=== PATIENT | male | born 1955 | race Caucasian/White ===

== ENCOUNTER → 2018-09-06 | Outpatient (CLI) | payer OTHER | END | disposition home or self-care (01) | LOC: RAH 15:02 | PROVIDERS: ATTEND Internal Medicine Cardiovascular Disease | DX: Z13.6 Encounter for screening for cardiovascular disorders (principal) | CPT/HCPCS: 75571 ==

== ENCOUNTER → 2018-09-13 | Outpatient (CLI) | payer OTHER | END | disposition home or self-care (01) | LOC: SHCH 14:47 | PROVIDERS: ATTEND Internal Medicine Cardiovascular Disease | DX: I10 Essential (primary) hypertension (principal) | CPT/HCPCS: 93306 ==

== ENCOUNTER → 2019-12-27 | Outpatient (CLI) | payer OTHER | END | disposition home or self-care (01) | LOC: SHCH 10:00 | PROVIDERS: ATTEND Internal Medicine Cardiovascular Disease | DX: I65.23 Occlusion and stenosis of bilateral carotid arteries (principal) | CPT/HCPCS: 93880 ==

== ENCOUNTER 2021-06-29 09:04 | Day surgery (SDC) | payer OTHER ==
[~2021-06-29] VITALS: Ht 188 cm; Wt 101.2 kg
[~2021-06-29 09:04] MED LIST: 0.9%NACL 1000ML 1,000 ML IV ONE; ASCO100031 PO; ASPI-1197 PO; DOCU100T PO; FISH1CAP27 PO; HYDR25TA PO; LORA10TA7 PO; LOSA25TA41 PO; MULT-1203 PO; WHEA98PO PO
[2021-06-29 09:50] VITALS: BP 157/75
[2021-06-29] MEDS ORDERED: PROPOFOL 10 MG/ML 20ML VIAL IV ONE (11:06)
[2021-06-29 11:18] VITALS: BP 98/37
[2021-06-29 11:23] VITALS: BP 126/53
[2021-06-29 11:33] VITALS: BP 128/62
== END 2021-06-29 11:35 | disposition home or self-care (01) ==
LOC: DAH 09:04 → ENDO 09:04
PROVIDERS: ATTEND Internal Medicine Gastroenterology
DX: Z12.11 Encounter for screening for malignant neoplasm of colon (principal); K63.5 Polyp of colon; K64.2 Third degree hemorrhoids; K59.04 Chronic idiopathic constipation; I10 Essential (primary) hypertension; Z79.899 Other long term (current) drug therapy; Z20.822 Contact with and (suspected) exposure to COVID-19
CPT/HCPCS: 45380; 87635; 93005; A4215 ×2; A4221; A4222; A4223; A4606; A4620; A4663; C9803; J2704; J7030